=== PATIENT | female | born 1980 | race Two or more races ===

== ENCOUNTER 2016-04-24 09:48 | Emergency (ER) | payer MEDICAID, OTHER ==
[~2016-04-24] VITALS: Ht 160 cm; Wt 89.0 kg
[~2016-04-24 09:48] MED LIST: AZIT250T6 PO; IBUP-1542 PO
[2016-04-24 09:54] VITALS: Ht 160 cm; Wt 89.0 kg
[2016-04-24] MEDS ORDERED: OSLT75C PO (12:23)
[2016-04-24] MEDS ORDERED: IBUP-1542 PO (12:23)
[2016-04-24] MEDS ORDERED: ACET500C5 PO (12:24)
[2016-04-24] MEDS ORDERED: UDROBDM PO (12:24)
[2016-04-24] MEDS ORDERED: FLUT9.9S NASAL (12:24)
--- NOTE | 2016-04-24 12:28 | ERD ---
ER Documentation Chief Complaint Date/Time DATE: 04/24/16 TIME: 12:25 Chief Complaint FEVER , SORE THROAT HPI This is a 35-year-old female who presents the emergency department with 1 day of sore throat, cough, nasal congestion, fevers and body aches. Denies any vomiting or diarrhea. ROS All systems reviewed and are negative except as per history of present illness. Medications Home Meds Active Scripts Fluticasone Propionate (Flonase Allergy Relief) 9.9 Ml [place].susp, 1 SPRAY NASAL BID, #1 BOTTLE TO EACH NOSTRIL Prov:RIKY BUTLER-C 04/24/16 Guaifenesin-Dextromethorphan* (Robitussin* DM) 100MG/10MG/5ML Syrup, 10 ML PO Q4H Y for COUGH for 7 Days, ML Prov:RIKY BUTLER-C 04/24/16 Acetaminophen* (Tylophen*) 500 Mg Capsule, 1 CAP PO Q6H Y for PAIN AND OR ELEVATED TEMP, #30 CAP Prov:RIKY BUTLERC 04/24/16 Ibuprofen* (Motrin*) 600 Mg Tab, 600 MG PO Q6, #30 TAB Prov:RIKY BUTLER-C 04/24/16 Oseltamivir Phosphate* (Tamiflu*) 75 Mg Capsule, 75 MG PO BID for 5 Days, CAP Prov:RIKY BUTLER-C 04/24/16 Ibuprofen* (Motrin*) 600 Mg Tab, 600 MG PO Q6H Y for PAIN AND OR ELEVATED TEMP, #14 Prov:FADI CHANEY MD 01/01/15 Azithromycin* (Azithromycin*) 250 Mg Tablet, 500 MG PO ONCE, #1 TAB Prov:FADI CHANEY MD 01/01/15 Azithromycin* (Azithromycin*) 250 Mg Tablet, 250 MG PO DAILY, #4 TAB Prov:FADI CHANEY MD 01/01/15 Allergies Allergies: Coded Allergies: Penicillins (Verified Allergy, Unknown, RASH, HIVES, 01/01/15) PMhx/Soc Medical and Surgical Hx: pt denies Medical Hx, pt denies Surgical Hx History of Surgery: No Anesthesia Reaction: No Hx Neurological Disorder: No Hx Respiratory Disorders: No Hx Cardiac Disorders: No Hx Psychiatric Problems: No Hx Miscellaneous Medical Probl: No Hx Alcohol Use: No Hx Substance Use: No Hx Tobacco Use: No Smoking Status: Never smoker Physical Exam Vitals Vital Signs Date Time Temp Pulse Resp B/P Pulse Ox O2 Delivery O2 Flow Rate FiO2 04/24/16 09:54 98.3 90 18 109/60 99 Physical Exam Const: No acute distress Head: Atraumatic Eyes: Normal Conjunctiva ENT: Ears TMs normal. Nose no drainage. Throat no erythema no exudate. Neck: Full range of motion..~ No meningismus. Resp: Clear to auscultation bilaterally. No absent breath sounds. No wheezing. Cardio: Regular rate and rhythm, no murmurs Abd: Soft, non tender, non distended. Normal bowel sounds Skin: No petechiae or rashes Neur: Awake and alert Psych: Normal Mood and Affect Procedures/MDM This is a 35-year-old female who presents to the emergency department today complaining of influenza-like symptoms. Patient is afebrile here in the emergency department. She is not tachycardic. Her oxygen saturation is 90%. She is nontoxic appearing. I do not feel the patient requires further laboratory workup or imaging at this time. I have low suspicion for strep pharyngitis, peritonsillar abscess, retropharyngeal abscess, otitis media, PNA, sinusitis, abscess, meningitis, sepsis, or other acute infectious bacterial process. Patient will be given a prescription for Tamiflu, Robitussin, Tylenol, Motrin, Flonase to treat the symptoms as well. At this time the patient is stable for discharge and outpatient management. They should follow up with their PCP in the next 1-2. They may return to the emergency department sooner if symptoms persist or worsen. Patient understood and agreed with the plan. Departure Diagnosis: Primary Impression: Influenza-like symptoms Condition: Fair Patient Instructions: Influenza (Adult) Referrals: your PCP Additional Instructions: Call your primary care doctor TOMORROW for an appointment during the next 1-2 days.See the doctor sooner or return here if your condition worsens before your appointment time. Take Tamiflu for flulike symptoms Take Tylenol every 4 hours or Motrin every 6 hours for fever or sore throat Take Robitussin for cough Take Flonase for nasal congestion Drink plenty of fluids RIKY BUTLER PA-C Apr 24, 2016 12:27
[2016-04-24 12:47] VITALS: BP 110/60; PULSE 85; RESP 18; TEMP 98.3
== END 2016-04-24 12:47 | disposition home or self-care (01) ==
LOC: FTE 09:48
DX: J02.9 Acute pharyngitis, unspecified (principal); R05 Cough; R09.81 Nasal congestion
CPT/HCPCS: 99283

== ENCOUNTER 2016-12-12 09:39 | Emergency (ER) | payer OTHER ==
[~2016-12-12] VITALS: Ht 154.9 cm; Wt 87.5 kg
[~2016-12-12 09:39] MED LIST changes: +ACET500C5 PO; +FLUT9.9S NASAL; +OSLT75C PO; +UDROBDM PO
[2016-12-12 09:42] VITALS: Ht 154.9 cm; Wt 87.5 kg
--- NOTE | 2016-12-12 10:43 | ERD ---
ER Documentation Chief Complaint Chief Complaint sorethoat & fever x2 days HPI 36-year-old female complains of sore throat, fever and body aches for the past 3 days. The patient states that her was seen last week in the emergency department was treated for strep pharyngitis she also did receive the flu shot a few days ago. She describes pain to be sharp, localized in the back of her throat, worse when she swallows but is able to handle her secretions. She has no difficulty breathing, swallowing or opening or closing her jaw. She reports fevers at home, nothing recorded. She did states that she has had a slight cough as well. ROS All systems reviewed and are negative except as per history of present illness. Medications Home Meds Active Scripts Ibuprofen* (Motrin*) 600 Mg Tab, 600 MG PO Q6, #30 TAB Prov:CHEPE HOPE PA-C 12/12/16 Azithromycin* (Zithromax*) 250 Mg Tablet, 250 MG PO .ZPACK DIRECTED, #6 TAB TAKE 500 MG (2 TABS) THE FIRST DAY THEN 250 MG (1 TAB) DAYS 2-5 Prov:CHEPE HOPE PA-C 12/12/16 Fluticasone Propionate (Flonase Allergy Relief) 9.9 Ml [place].susp, 1 SPRAY NASAL BID, #1 BOTTLE TO EACH NOSTRIL Prov:RIKY BUTLER PA-C 04/24/16 Guaifenesin-Dextromethorphan* (Robitussin* DM) 100MG/10MG/5ML Syrup, 10 ML PO Q4H Y for COUGH for 7 Days, ML Prov:RIKY BUTLER PA-C 04/24/16 Acetaminophen* (Tylophen*) 500 Mg Capsule, 1 CAP PO Q6H Y for PAIN AND OR ELEVATED TEMP, #30 CAP Prov:RIKY BUTLER PA-C 04/24/16 Ibuprofen* (Motrin*) 600 Mg Tab, 600 MG PO Q6, #30 TAB Prov:RIKY BUTLER PA-C 04/24/16 Oseltamivir Phosphate* (Tamiflu*) 75 Mg Capsule, 75 MG PO BID for 5 Days, CAP Prov:RIKY BUTLER PA-C 04/24/16 Ibuprofen* (Motrin*) 600 Mg Tab, 600 MG PO Q6H Y for PAIN AND OR ELEVATED TEMP, #14 Prov:FADI CHANEY MD 01/01/15 Azithromycin* (Azithromycin*) 250 Mg Tablet, 500 MG PO ONCE, #1 TAB Prov:FADI CHANEY MD 01/01/15 Azithromycin* (Azithromycin*) 250 Mg Tablet, 250 MG PO DAILY, #4 TAB Prov:FADI CHANEY MD 01/01/15 Allergies Allergies: Coded Allergies: Penicillins (Verified Allergy, Unknown, RASH, HIVES, 01/01/15) PMhx/Soc History of Surgery: No Anesthesia Reaction: No Hx Neurological Disorder: No Hx Respiratory Disorders: No Hx Cardiac Disorders: No Hx Psychiatric Problems: No Hx Miscellaneous Medical Probl: No Hx Alcohol Use: No Hx Substance Use: No Hx Tobacco Use: No Physical Exam Vitals Vital Signs Date Time Temp Pulse Resp B/P Pulse Ox O2 Delivery O2 Flow Rate FiO2 12/12/16 09:42 99.0 87 18 92/63 98 Physical Exam General: Well-developed, well-nourished. The patient appears in no acute distress. HEENT: Head is normocephalic, atraumatic. No scleral icterus. Bilateral tonsillar exudate, uvula midline, no masses. There is no trismus, no drooling. Neck: Supple. Nontender. Her anterior cervical chain lymphadenopathy. Lungs: Clear to auscultation. Normal air movement. Heart: Regular rate and rhythm. S1 and S2 are normal. No murmurs, gallops, or rubs. Abdomen: Nondistended. Extremities: No clubbing or cyanosis. Moving extremities x 4. No weakness. Neurologic: Alert and oriented 3. No focal deficits. Normal speech and gait. Skin: Normal turgor. No rash or lesions. Procedures/MDM 36-year-old female presents with acute pharyngitis, positive rapid strep. Patient will be treated for acute pharyngitis. There is no evidence of an abscess, airway threatening process, bacterial tracheitis. Departure Diagnosis: Primary Impression: Strep pharyngitis Condition: CHEPE Chi PA-C Dec 12, 2016 10:43
[2016-12-12] MEDS ORDERED: AZIT250T94 PO (11:18)
[2016-12-12] MEDS ORDERED: IBUP-1542 PO (11:18)
== END 2016-12-12 11:30 | disposition home or self-care (01) ==
LOC: FTE 09:39
DX: J02.0 Streptococcal pharyngitis (principal)
CPT/HCPCS: 87880; Z7502; 99283

== ENCOUNTER 2017-11-28 20:28 | Emergency (ER) | END 2017-11-29 01:48 | disposition home or self-care (01) ==